=== PATIENT | male | born 1965 | race Caucasian/White ===

== ENCOUNTER 2023-01-18 15:28 | Observation (INO) | payer BC ==
[~2023-01-18] VITALS: Ht 180.3 cm; Wt 96.6 kg
[2023-01-18 16:16] LABS: BASOPHILS 0.7 % (0-2); EOSINOPHILS 1.1 % (0-6); HEMATOCRIT 42.2 % (35.0-50.0); HEMOGLOBIN 14.2 g/dL (12.0-18.0); LYMPHOCYTES 28.2 % (24-44); MCH 28.1 (27-36); MCHC 33.7 g/dl (30-36); MCV 83.3 fl (81-99); MONOCYTES 6.8 % (0-12); NEUTROPHILS 63.2 % (39-80); PLATELET COUNT 203 K/uL (140-440); RBC 5.07 M/ul (4.3-5.7)
[2023-01-18 16:31] LABS: ALBUMIN/GLOBULIN RATIO 0.95 (1.1-2.4); ANION GAP 12.3 (7-21); BILIRUBIN, TOTAL 2.4 ng/dL (0.2-1.0); BUN/CREATININE RATIO 16.48 (6.0-28.6); CALCIUM 9.3 mg/dL (8.5-10.1); CREATININE, SERUM 0.91 mg/dL (0.70-1.30); POTASSIUM 3.3 mmol/L (3.5-5.1); PROTEIN, TOTAL 8.2 g/dL (6.4-8.2)
--- NOTE | 2023-01-18 18:48 | NUR ---
01/18/231847 Saritha Hopper 183: PT ARRIVES TO PACU FOR RECOVERY VIA STRETCHER. AWAKE AND ALERT ON ARRIVAL. HOLDS APPROPRIATE CONVERSATION. VSS, RESP EVEN AND UNLABORED ON 6L VIA OXYMASK. DENIES PAIN AND NAUSEA AT THIS TIME. COUGHS INTERMITTENTLY 1839: VSS, CONTS TO HOLD CONVERSATION AND DENY PAIN AND NAUSEA. OXYGEN TURNED OFF AND PT TRIALLED ON RA. CONTS TO MAINTAIN O2 SATS >94%. 1844: REMAINS AWAKE AND ALERT. VSS, RESP EVEN AND UNLABORED. REMAINS ON RA, O2 SAT >97%. SR. CONTS TO DENY PAIN AND NAUSEA
[2023-01-18 19:16] VITALS: BP 131/71
--- NOTE | 2023-01-18 19:18 | NUR ---
Patient arrived to the medical floor, alert and oriented x4. Vital signs are stable, 98% on room air. Patient oriented to room and call light.
--- NOTE | 2023-01-18 19:27 | NUR ---
REPORT FROM TELLO FLORES. PT ALERT/ORIENTATED, DENIES PAIN. OFFERED AND ACCEPTED FATUMA PURI. EDUCATED CALL LIGHT, REMOTE. IV SL. EDMONDS.
--- NOTE | 2023-01-18 20:13 | NUR ---
ROUNDED ON PT, DRINKING WATER, STATES THROAT SORE, WHICH HE SAID IS "EXPECTED", REQUESTED MORE JELLO, RECEIVED. DENIES NEED TO VOID AT THIS TIME.
[2023-01-18 20:25] VITALS: BP 134/76
[2023-01-18 21:21] VITALS: BP 138/88
--- NOTE | 2023-01-18 21:24 | NUR ---
PT VOIDED, DRESSED, VITALS COMPLETED PRIOR TO DISCHARGE. DENIES PAIN, DISCHARGE INFORMATION, STATES HE UNDERSTANDS. SON HERE TO TAKE PT HOME. IV DC'D INTACT; PERSCRIPTION SENT WITH PT. PT TAKEN OUT VIA W/C, WT ALL PERSONAL ITEMS AND DISCHARGE INSTRUCTIONS.
--- NOTE | 2023-01-22 15:22 | PATH ---
[facility] [address], [place] [address] Signed SPECIMEN(S): A STOMACH BIOPSY SPECIMEN(S): B DISTAL ESOPHAGEAL BIOPSY SPECIMEN(S): C MID ESOPHAGEAL BIOPSY SPECIMEN(S): D PROXIMAL ESOPHAGEAL BIOPSY SPECIMEN SOURCE: A. STOMACH BIOPSY B. DISTAL ESOPHAGEAL BIOPSY C. MID ESOPHAGEAL BIOPSY D. PROXIMAL ESOPHAGEAL BIOPSY CLINICAL HISTORY: Foreign body esophagus/gastritis; food impaction distal esophagus. FINAL PATHOLOGIC DIAGNOSIS: A. Stomach biopsy: - Benign gastric type mucosa with focal mild chronic gastritis. - Helicobacter pylori immunostain is negative for organisms. B. Distal esophageal biopsy: - Benign esophageal epithelium with focal slightly increased epithelial eosinophils (up to 6 per high-powered field). - Negative for glandular mucosa. C. Mid esophageal biopsy: - Benign esophageal epithelium, negative for increased epithelial eosinophils. D. Proximal esophageal biopsy: - Benign esophageal epithelium, negative for increased epithelial eosinophils. JVR:[id number] MICROSCOPIC EXAMINATION: A Helicobacter pylori immunostain is performed with appropriate positive and negative controls on block A1 and is negative for organisms. Histologic sections of all submitted blocks are examined by light microscopy. These findings, together with the gross examination, support the pathologic diagnosis. GROSS DESCRIPTION: A. The specimen, labeled and designated "Calvin, stomach biopsy," is received in formalin and consists of four spence soft tissue fragments, ranging from 0.1-0.7 cm. Entirely submitted in (A1). B. The specimen, labeled and designated "Calvin, distal esophageal biopsy," is received in formalin and consists of two spence soft tissue fragments, ranging PATIENT NAME: GIBRAN MCGEE PATHOLOGY DATE OF : 61 REPORT #: [id number] PHYSICIAN: ELLIE MELGAR PCP: NO PRIMARY CARE PHYSICIAN REPORT IS CONFIDENTIAL AND NOT TO BE RELEASED WITHOUT AUTHORIZATION [facility] [address], [place] [address] Signed from 0.2-0.4 cm. Entirely submitted in (B1). C. The specimen, labeled and designated "Calvin, mid esophageal biopsy," is received in formalin and consists of two spence soft tissue fragments, ranging from 0.3-0.4 cm. Entirely submitted in (C1). D. The specimen, labeled and designated "Calvin, proximal esophageal biopsy," is received in formalin and consists of two spence soft tissue fragments, ranging from 0.2-0.5 cm. Entirely submitted in (D1). VB (under the direct supervision of a pathologist) The Gross Description was prepared using a voice recognition system. The report was reviewed for accuracy; however, sound-alike word errors, addition and/or deletions may occur. If there is any question about this report, please contact Client Services. ADDITIONAL NOTES: Immunohistochemical and/or in situ hybridization studies were performed on this case with the appropriate positive controls that react as expected. This test was developed and its performance characteristics determined by [facility]. It has not been cleared or approved by the U.S. Food and Drug Administration. The FDA has determined that such clearance or approval is not necessary. This test is used for clinical purposes. It should not be regarded as investigational or for research. [facility] is certified under the Clinical Laboratory Improvement Amendments of 1988 (CLIA) as qualified to perform high complexity clinical laboratory testing. This assay has not been validated for specimens that have been decalcified. PERFORMING LABORATORY: Technical component was performed by [facility], [address] [place] [address] (CLIA# [id number]). Professional interpretation was performed by [facility], [address] [place] [address], [place] [address] (CLIA#: [id number]). Diagnostician: Javier Hardwick MD Pathologist Electronically Signed 01/22/2023 PATIENT NAME: GIBRAN MCGEE PATHOLOGY DATE OF : 61 REPORT #: [id number] PHYSICIAN: [facility] PCP: NO PRIMARY CARE PHYSICIAN REPORT IS CONFIDENTIAL AND NOT TO BE RELEASED WITHOUT AUTHORIZATION
--- NOTE | 2023-01-24 02:13 | HP ---
[facility] [address] [place], [place] [address] Signed ADMISSION DATE: 01/18/2023 REASON FOR ADMISSION: Probable food impaction of esophagus. HISTORY: This is a 57-year-old white man lives in [place], previously in [place], [place]. He lives with his adult son 27 years of age. 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 On this occasion, it did not. He did not have hypersalivation, but was unable to keep down any water that has been ingested. He did go to work this morning hoping to continue with water ingestion, but it was unsuccessful. He then presented to the emergency room and was thoroughly evaluated by Dr. Horowitz confirming the high probability of persistent food impaction. The patient denies ongoing gastroesophageal reflux problems, though he has had longstanding dysphagia per se. He denies any extensive allergy history. PAST MEDICAL HISTORY: Surprisingly unremarkable; he does have obesity. Denies any hypertension or other medical problems. He takes no medications on ongoing basis. ALLERGIES: No known drug allergies. REVIEW OF SYSTEMS: He denies any shortness of breath or chest pain. He does not currently have hypersalivation. PHYSICAL EXAMINATION: GENERAL: Pleasant white man who is somewhat obese. HEENT: Mucous membranes are reasonably moist. An IV is continuing to run at this time. Trachea is midline. He has no cervical adenopathy or mass. He has no hoarseness. CHEST: Shows normal respiratory excursion. Pulses regular. ABDOMEN: Somewhat obese. EXTREMITIES: Show no clubbing, cyanosis, or edema. Electronically Signed By: CAESAR DE JESUS MD 01/24/23 0213 PATIENT NAME: GIBRAN MCGEE HISTORY AND PHYSICAL DATE OF : 61 REPORT #: [id number] PHYSICIAN: CAESAR DE JESUS MD PCP: NO PRIMARY CARE PHYSICIAN REPORT IS CONFIDENTIAL AND NOT TO BE RELEASED WITHOUT AUTHORIZATION [facility] [address] [place], [place] [address] Signed ASSESSMENT: He likely has an incomplete obstruction of the esophagus with the food as he has anticipated. I discussed the pathophysiology of this problem and his potential etiologies including silent reflux related esophageal stricture, eosinophilic esophagitis and of course, neoplasm. I would recommend upper endoscopy to better evaluate the esophagus clear it from any food impaction and so on. I will work with the dope firer on approach that likely would include endotracheal intubation on the possibility that food extraction may be hazardous to airway. The patient agrees and understands these concepts and wished to proceed. MD TAINA Aparicio/MODL /[id number] cc: Esau Horowitz MD Copies: ESAU HOROWITZ MD ~ Electronically Signed By: CAESAR DE JESUS MD 01/24/23 0213 PATIENT NAME: GIBRAN MCGEE HISTORY AND PHYSICAL DATE OF : 61 REPORT #: [id number] PHYSICIAN: CAESAR DE JESUS MD PCP: NO PRIMARY CARE PHYSICIAN REPORT IS CONFIDENTIAL AND NOT TO BE RELEASED WITHOUT AUTHORIZATION
--- NOTE | 2023-01-24 02:13 | OR ---
[facility] [address] [place], [place] [address] Signed DATE OF OPERATION: 01/18/2023 SURGEON: Caesar De Jesus MD PREOPERATIVE DIAGNOSES: Food impaction, esophageal obstruction related to chicken. POSTOPERATIVE DIAGNOSES: 1. Food impaction, esophageal obstruction related to chicken. 2. Diffuse gastritis. 3. No evidence of stricture or neoplasm. PROCEDURES: 1. Esophagogastroduodenoscopy with biopsy. 2. Disimpaction of impacted food of distal esophagus (difficult). ANESTHESIA: General endotracheal, Melia Blair CRNA INDICATIONS: This 57-year-old white man has long-standing dysphagia both without associated clinical reflux symptoms. Last night he was eating chicken and had what appeared to him to be obstruction of the esophagus. His usual measures including drinking liquids and so forth was unsuccessful in passing the impaction. He presented to the emergency room and was evaluated by Dr. Esau Horowitz. Although, he did not have hypersalivation; he is unable to swallow fluid in any meaningful way. On that basis, he is recommended to undergo upper endoscopy and removal of the foreign body and other indicated procedures. He understands the risk of bleeding, infection and perforation related to the procedure and wished to proceed. FINDINGS: Indeed there was impacted chicken in the distal esophagus. A variety of methods was used to clear the esophagus. Ultimately it was cleared completely. The stomach itself had diffuse gastritis as well. CLOtest was negative 20 minutes post procedure. The flap valve was marginal. He did not have a stricture or neoplasm at the site of obstruction, though he may well have eosinophilic esophagitis. Biopsies are pending. DESCRIPTION OF PROCEDURE: The patient was brought to the endoscopy suite and placed in the supine position, given a general endotracheal anesthetic. The Olympus video upper endoscope was passed in the Electronically Signed By: CAESAR DE JESUS MD 01/24/23 0213 PATIENT NAME: GIBRAN MCGEE OPERATIVE REPORT DATE OF : 61 REPORT #: [id number] PHYSICIAN: CAESAR DE JESUS MD PCP: NO PRIMARY CARE PHYSICIAN REPORT IS CONFIDENTIAL AND NOT TO BE RELEASED WITHOUT AUTHORIZATION [facility] [address] [place], [place] [address] Signed hypopharynx. The scope was easily passed in the esophagus and near the endotracheal tube. The esophagus was examined and showed a mid low-grade Schatzki's web it appeared. Further passage of the scope into the distal esophagus showed impaction of food as clinically predicted. Various maneuvers were undertaken to free the foreign body. Since it had been present for 24 hours, its consistency was such that shredding of the material rather than explantation alone was noted. A variety of techniques including three prong grasper, Vargas Net and irrigation as well as a shortened 32-Mongolian overtube were used. Some of it was explanted, this was pushed through. Ultimately the impacted food was passed into the stomach. Irrigation was undertaken. Thorough examination of the stomach showed diffuse gastritis. Biopsies were taken of both BENTLEY and pathologic testing. The pylorus was normal. Scope was passed through into the normal-appearing duodenum. Retroflexed view showed a marginal flap valve. The scope was then withdrawn and biopsies taken of distal esophagus, mid esophagus and proximal esophagus which actually had the most inflammation (probably from repeated passage of the scope). He was taken to the recovery room in good condition. CONCLUDING DIAGNOSIS: Food impaction of uncertain cause. PLAN: He will be initiated on Prilosec 20 mg p.o. daily. I will see him back in the office in 4 to 6 weeks. He is advised to avoid anything more than semi-solid food for the next 48 hours and should avoid meat and bread for a few days as well. We will assess his pathology report when he returns to the office. Caesar De Jesus MD /MODL /[id number] cc: Esau Horowitz MD Electronically Signed By: CAESAR DE JESUS MD 01/24/23212 PATIENT NAME: GIBRAN MCGEE OPERATIVE REPORT DATE OF : 61 REPORT #: [id number] PHYSICIAN: CAESAR DE JESUS MD PCP: NO PRIMARY CARE PHYSICIAN REPORT IS CONFIDENTIAL AND NOT TO BE RELEASED WITHOUT AUTHORIZATION [facility] [address], [place] [address] Signed Copies: ESAU HOROWITZ MD ~ Electronically Signed By: CAESAR DE JESUS MD 01/24/23212 PATIENT NAME: GIBRAN MCGEE OPERATIVE REPORT DATE OF : 61 REPORT #: [id number] PHYSICIAN: CAESAR DE JESUS MD PCP: NO PRIMARY CARE PHYSICIAN REPORT IS CONFIDENTIAL AND NOT TO BE RELEASED WITHOUT AUTHORIZATION
== END 2023-01-18 21:10 | disposition home or self-care (01) ==
LOC: ED 15:28 → MS 15:30 → ED 15:30 → DSVR 17:26
PROVIDERS: Emergency Medicine; ADMIT Surgery; ATTEND Surgery
PROC: 0DB38ZX Excision of Lower Esophagus, Via Natural or Artificial Opening Endoscopic, Diagnostic (ICD-10-PCS; 2023-01-18)
PROC: 0DB68ZX Excision of Stomach, Via Natural or Artificial Opening Endoscopic, Diagnostic (ICD-10-PCS; 2023-01-18)
PROC: 0DB18ZX Excision of Upper Esophagus, Via Natural or Artificial Opening Endoscopic, Diagnostic (ICD-10-PCS; 2023-01-18)
PROC: 0DB28ZX Excision of Middle Esophagus, Via Natural or Artificial Opening Endoscopic, Diagnostic (ICD-10-PCS; 2023-01-18)
PROC: 0DC58ZZ Extirpation of Matter from Esophagus, Via Natural or Artificial Opening Endoscopic (ICD-10-PCS; principal; 2023-01-18 17:45)
DX: T18.128A Food in esophagus causing other injury, initial encounter (principal); K29.50 Unspecified chronic gastritis without bleeding
CPT/HCPCS: 00731; 36415; 80053; 85025; 99284; J0330; J1100; J2405; J2704; J7121